=== PATIENT | female | born 1990 | race Hispanic/Latino ===

== ENCOUNTER 2017-11-10 11:34 | Emergency (ER) | payer OTHER ==
[~2017-11-10] VITALS: Ht 157.5 cm; Wt 91.6 kg
[~2017-11-10 11:34] MED LIST: AZITHROMYCIN250 MG1 PO; BENADRYL25 MG PO; COLACE100 MG PO; FIORICET,ESG1 TABLET PO; FLEXERIL10 MG PO; HYCODAN SYRUP480 ML PO; MAALOX ADVANCE355 ML PO; MACROBID100 MG PO; MUCUS ER600 MG PO; MULTI COMPLETE1 EACH PO; NO MEDS; NOHOMEMEDS; PERCOCET 5/31 TABLET PO; PREDNISONE20 MG PO; PREVACID30 MG PO; PRILOSEC20 MG PO; PROAIR HFA8.5 GM IH; REGLAN5 MG PO; ROBITUSSIN NIG118 ML PO; SUDAFED 12-HOU120 MG PO; TESSALON PERLE100 MG PO; TYLENOL325 M1 PO; VENTOLIN HFA18 GM IH; ZANTAC150 MG PO; ZITHROMAX Z-PA250 MG PO; ZOFRAN ODT4 MG PO
[2017-11-10 15:13] VITALS: BP 122/82
== END 2017-11-10 15:13 | disposition home or self-care (01) ==
LOC: EME 11:34
DX: J10.1 Influenza due to other identified influenza virus with other respiratory manifestations (principal); J45.909 Unspecified asthma, uncomplicated; F17.200 Nicotine dependence, unspecified, uncomplicated; Z88.0 Allergy status to penicillin
CPT/HCPCS: 87502; 99281; 99283